=== PATIENT | female | born 1950 | race Caucasian/White ===

== ENCOUNTER → 2016-08-24 | Outpatient (CLI) | payer OTHER, BC | LOC: BHFA 10:45 | PROVIDERS: ATTEND Internal Medicine Cardiovascular Disease | DX: I10 Essential (primary) hypertension (principal) ==

== ENCOUNTER → 2016-09-03 | Outpatient (CLI) | payer OTHER, BC | LOC: BHFA 09:45 | PROVIDERS: ATTEND Internal Medicine Interventional Cardiology | DX: R00.2 Palpitations (principal); R01.1 Cardiac murmur, unspecified; I10 Essential (primary) hypertension ==

== ENCOUNTER → 2016-09-14 | Outpatient (CLI) | payer OTHER, BC | LOC: BHFA 09:00 | PROVIDERS: ATTEND Internal Medicine Cardiovascular Disease | DX: R01.1 Cardiac murmur, unspecified (principal); R00.2 Palpitations; I10 Essential (primary) hypertension ==

== ENCOUNTER → 2017-05-31 | Outpatient (CLI) | payer OTHER, BC | LOC: CIMAGING 07:50 | PROVIDERS: ATTEND Internal Medicine Gastroenterology | DX: K21.9 Gastro-esophageal reflux disease without esophagitis (principal); R13.10 Dysphagia, unspecified; R10.11 Right upper quadrant pain | CPT/HCPCS: 76705-PO ==

== ENCOUNTER 2017-08-09 10:05 | Day surgery (SDC) | payer OTHER, BC ==
[2017-08-09 11:35] VITALS: PULSE 83
--- NOTE | 2017-08-09 11:50 | PDANEPAE ---
ANE History of Present Illness 67 year old female w/ PMHx of HTN, DM2, depression, Gerd, IBS and dysphagia presents for EGD w/ possible dilation. ANE Past Medical History - Cardiovascular History Hx Hypertension: Yes Hx Arrhythmias: No Hx Chest Pain: No Hx Coronary Artery / Peripheral Vascular Disease: No Hx CHF / Valvular Disease: Yes Hx Palpitations: No Cardiovascular History Comment: HEART MURMUR. DYSLIPIDEMIA. HYPOMAGNESEMIA - Pulmonary History Hx COPD: No Hx Asthma/Reactive Airway Disease: No Hx Recent Upper Respiratory Infection: No Hx Oxygen in Use at Home: No Hx Sleep Apnea: No Sleep Apnea Screening Result - Last Documented: Negative - Neurologic History Hx Cerebrovascular Accident: No Hx Seizures: No Hx Dementia: No - Endocrine History Hx Diabetes: Yes Hypothyroid: No Hyperthyroid: No Obesity: no Endocrine History Comment: DM - METFORMIN - Renal History Hx Renal Disorders: No - Liver History Hx Hepatic Disorders: No - Neurological & Psychiatric Hx Hx Neurological and Psychiatric Disorders: Yes Neurological / Psychiatric History Comment: DEPRESSION - Cancer History Hx Cancer: No - Congenital Disorder History Hx Congenital Disorders: No - GI History Hx Gastrointestinal Disorders: Yes Gastrointestinal History Comment: GERD. IBS - Other Health History Other Health History: NEG - Chronic Pain History Chronic Pain: No - Surgical History Prior Surgeries: FUSION LUMBAR. KHURRAM TKA. HYSTERECTOMY. THUMB JOINT R. TONSILLECTOMY ANE Review of Systems Review of systems is: negative Review of Systems: - Exercise capacity Exercise capacity: >=4 METS METS (RN): 4 METS ANE Patient History - Allergies Allergies/Adverse Reactions: codeine [Codeine] Allergy (Verified 05/02/15 13:45) - Home Medications Home medications: home medication list seen and reviewed Home Medications: Aspirin [Aspirin 81mg (*)] 81 mg PO DAILY 12/21/14 [Last Taken 08/08/17] Atorvastatin Calcium [Lipitor 10 mg (*)] 10 mg PO DAILY06 12/21/14 [Last Taken 08/08/17] Cholecalciferol Vit D3 [Vitamin D3 (*)] 1,000 units PO DAILY 12/21/14 [Last Taken 1 Week Ago ~08/02/17] Lisinopril [Zestril 10 mg (*)] 10 mg PO BID 12/21/14 [Last Taken 08/08/17] Metformin HCl [Metformin 1000 mg] 1,000 mg PO BID 12/21/14 [Last Taken 08/08/17] Multivitamins [Multivitamin (*)] 1 each PO DAILY 12/21/14 [Last Taken 1 Week Ago ~08/02/17] [place]-3 Fatty Acids [Fish Oil 1000 mg (*)] 1,000 mg PO BID 12/21/14 [Last Taken 1 Week Ago ~08/02/17] Sertraline HCl [Zoloft 100mg (*)] 100 mg PO DAILY18 12/21/14 [Last Taken ] Ranitidine HCl 07/10/17 [Last Taken 08/08/17] - NPO status NPO Status: no food or drink >8 hours NPO Since - Liquids (Date): 08/08/17 NPO Since - Liquids (Time): 08:00 NPO Since - Solids (Date): 08/08/17 NPO Since - Solids (Time): 20:00 - Anes Hx Anes Hx: no prior problems - Smoking Hx Smoking Status: Never smoked Marijuana use: No - Alcohol Use Alcohol Use: None - Family Anes Hx Family Anes Hx: neg - N/A Family Hx Anesthesia Complications: NEG ANE Labs/Vital Signs - Vital Signs Vital Signs: reviewed preoperatively; see RN documention for details Blood Pressure: 149/93 Heart Rate: 83 Respiratory Rate: 16 O2 Sat (%): 96 Height: 180.34 cm Weight: 95.254 kg ANE Physical Exam - Airway Neck exam: FROM Mallampati Score: Class 2 Mouth exam: normal dental/mouth exam - Pulmonary Pulmonary: no respiratory distress - Cardiovascular Cardiovascular: regular rate and rhythym - ASA Status ASA Status: III ANE Anesthesia Plan Anesthesia Plan: GA with mask Total IV Anesthesia: Yes
--- NOTE | 2017-08-09 11:55 | PDGENHP ---
History & Physical Chief Complaint: GERD dysphagia History of Present Illness: GERD but low mag on lanzoprazole this was stopped. Having some GERD on Prilosec 40 BID Pertinent Past, Social, Family History: neg Relevant Physical Exam: CV rrr s1s2 nl. Chest CTA. Abd + BS soft Cardiorespiratory Assessment: asa11
[2017-08-09] MEDS ORDERED: PROPOFOL/EMULSION 500 MG/50 ML BOTTLE IV ONE (11:58)
[2017-08-09] MEDS ORDERED: fentaNYL 100 MCG/2 ML INJ IVP PRN (12:29)
[2017-08-09] MEDS ORDERED: ONDANSETRON 4 MG/2 ML VIAL IVP PRN (12:29)
[2017-08-09] MEDS ORDERED: NALOXONE HCL 0.4 MG/ML INJ IVP PRN (12:29)
[2017-08-09] MEDS ORDERED: LR 500 ML IV PRN (12:29)
--- NOTE | 2017-08-09 12:34 | GIREPORT ---
[facility] - Endoscopy Department Patient Name: Yessica Yoo Procedure Date: 08/09/2017 12:04 PM Patient Type: Outpatient Attending MD/ ER Physician: Darlin Adamson MD Procedure: Upper GI endoscopy Indications: Dysphagia, Follow-up of esophageal reflux Providers: Darlin Adamson MD Medicines: Monitored Anesthesia Care Complications: No immediate complications. Description of Procedure: After obtaining informed consent, the endoscope was passed under direct vision. Throughout the procedure, the patient's blood pressure, pulse, and oxygen saturations were monitored continuously. The Endoscope was intro duced through the mouth, and advanced to the second part of duodenum. [facility] endoscopy was accomplished without difficulty. The patient tolerated th e procedure well. Findings: LA Grade B (one or more mucosal breaks greater than 5 mm, not extending between the tops of two mucosal folds) esophagitis with no bleeding was found at the gastroesophageal junction. Biopsies were taken with a cold forceps for histology. Estimated blood loss was minimal. The middle third of the esophagus was normal. Biopsies were taken with a cold forceps for histology. Estimated blood loss was minimal. One mild benign-appearing, intrinsic stenosis was found. And was luis sed. A medium-sized hiatal hernia was present. The stomach was normal. The examined duodenum was normal. Estimated Blood Loss: Estimated blood loss was minimal. Post Op Diagnosis: - LA Grade B reflux esophagitis. Biopsied. Dilation not done due to inflammation. - Normal middle third of esophagus. Biopsied. - Benign-appearing esophageal stenosis. - Medium-sized hiatal hernia. - Normal stomach. - Normal examined duodenum. Recommendation: - Await pathology results. - Patient has a contact number available for emergencies. The signs and symptoms of potential delayed complications were discussed with the pat ient. Return to normal activities tomorrow. Written discharge instructions we re provided to the patient. - Resume previous diet. - Continue present medications. - Use Protonix (pantoprazole) 20 mg PO daily daily. - Take ranitidine 150 mg 2 tabs before bed. - Check magnesium in 2 weeks. - Return to my office in 3 months. If cannot tolerate PPI due to drop i n magnesium then restart ranitidine 300 BID and consider surgical options or consider Baclofen. - Discharge patient to home. - Thank you for allowing me to participate in the care of your patient. Attending Participation: I personally performed the entire procedure. Darlin Adamson MD Darlin Adamson MD 08/09/2017 12:34:12 PM This report has been signed electronicallyDarlin Adamson MD Number of Addenda: 0 Note Initiated On: 08/09/2017 12:04 PM [email or web address]
[2017-08-09 13:18] VITALS: O2SAT 96
--- NOTE | 2017-08-09 13:34 | POSTANESTH ---
Post Anesthetic Evaluation Cardiovascular Status: Normal, Stable, Similar to Pre-Op Cond Respiratory Status: Normal, Stable, Similar to Pre-op Cond. Level of Consciousness/Mental Status: Can Participate in Eval, Alert and Oriented Pain Control: Adequate, Prn Tx Ordered Nausea/Vomiting Control: Adequate, Prn Tx Ordered Complications Possibly Related to Anesthesia: None Noted
[2017-08-09 14:08] VITALS: BP 136/78; RESP 18; TEMP 98.1
== END 2017-08-09 13:50 | disposition home or self-care (01) ==
LOC: FSGY 10:05
PROVIDERS: ATTEND Internal Medicine Gastroenterology
DX: K20.9 Esophagitis, unspecified (principal); K21.9 Gastro-esophageal reflux disease without esophagitis; R13.10 Dysphagia, unspecified
CPT/HCPCS: J2704

== ENCOUNTER → 2017-09-10 | Outpatient (CLI) | payer OTHER, BC | LOC: FIMAGING 11:39 | PROVIDERS: ATTEND Family Medicine | DX: Z12.31 Encounter for screening mammogram for malignant neoplasm of breast (principal) ==

== ENCOUNTER 2017-09-25 04:59 | Emergency (ER) | payer OTHER, BC ==
--- NOTE | 2017-09-25 05:12 | EDPHY ---
H & P HPI/ROS: HPI CHIEF COMPLAINT: Sore throat since saturday, chills, TMAX 99.9 HISTORY OF PRESENT ILLNESS: This is a very pleasant 67 y.o. Significant past medical history for hypertension, hyperlipidemia, GERD and non-insulin- dependent diabetes she presents emergency room with sore throat since Saturday. She has had some chills. She states T-max 99.9 degrees. She presents emergency room at 5:15 a.m. In the morning for sore throat. She has had a cough but nonproductive. She denies any chest pain or shortness of breath. Denies vomiting. Denies urinary symptoms. She states she has been sick with what seems to be upper respiratory tract infection since Saturday. She decided come the emergency room as she was concerned how bad her throat was hurting her and having a low-grade fever. Past Medical History: Hypertension, hyperlipidemia, GERD, non-insulin- dependent diabetes, history IBS Past Surgical History: Hip replacement Social History: Denies drugs alcohol tobacco products. Family History: Noncontributory ROS REVIEW OF SYSTEMS: A comprehensive 10 point review of systems is otherwise negative aside from elements mentioned in the history of present illness. Exam Constitutional appears well nontoxic no acute distress triage nursing summary reviewed, vital signs reviewed, awake/alert. Vital signs noted at triage hypertensive but not tachycardic or febrile Eyes normal conjunctivae and sclera, EOMI, PERRLA. HENT TMs are clear bilaterally, posterior pharynx mild erythema no exudate, normal inspection, atraumatic, moist mucus membranes, no epistaxis, neck supple / no meningismus, no raccoon eyes. Respiratory clear to auscultation bilaterally, normal breath sounds, no respiratory distress, no wheezing. Cardiovascular rate normal, regular rhythm, no murmur, no edema, distal pulses normal. Gastrointestinal soft, non-tender, no rebound, no guarding, normal bowel sounds, no distension, no pulsatile mass. Genitourinary no CVA tenderness. Musculoskeletal no midline vertebral tenderness, full range of motion, no calf swelling, no tenderness of extremities, no meningismus, good pulses, neurovascularly intact. Skin pink, warm, & dry, no rash, skin atraumatic. Neurologic awake, alert and oriented x 3, AAOx3, moves all 4 extremities equally, motor intact, sensory intact, CN II-XII intact, normal cerebellar, normal vision, normal speech. Psychiatric normal mood/affect. Heme/Lymph/Immune no lymphadenopathy. Differential Diagnosis: Includes but is not limited to in a particular order upper respiratory tract infection, strep pharyngitis, viral syndrome, influenza , viral pharyngitis, other viral process Medical Decision Making: Plan for this patient check rapid strep and influenza. Re-evaluation: 0527AM: The rapid strep and influenza test are negative. However I will start her on antibiotics azithromycin I do recommend she takes Tylenol for fever and pain control. Stay well-hydrated drink lots of fluids. Additionally recommend she follows up with primary care doctor. If she has worsening symptoms includes high fever, vomiting not feeling well she should return emergency room she understands this. Prescription prescribed for Mucinex and azithromycin. Source: Patient, Family - Personal History Tetanus Vaccine Date: 2009 - Medical/Surgical History Hx Asthma: No Hx Chronic Respiratory Disease: No Hx Diabetes: Yes Hx Cardiac Disease: No Hx Renal Disease: No Hx Cirrhosis: No Hx Alcoholism: No Hx HIV/AIDS: No Hx Splenectomy or Spleen Trauma: No Other PMH: BACK SURGERY, RODS. L.KNEE REPLACEMENT. CARPAL TUNNEL. THUMB JOINT SURGERY. ? colitis. HTN, hyperlipidemia - Social History Smoking Status: Never smoked Constitutional: Initial Vital Signs Temperature (C) 36.8 C 09/25/17 05:13 Heart Rate 92 09/25/17 05:13 Respiratory Rate 18 09/25/17 05:13 Blood Pressure 179/97 H 09/25/17 05:13 O2 Sat (%) 95 09/25/17 05:13 O2 Delivery Mode Room Air Allergies/Adverse Reactions: codeine [Codeine] Allergy (Verified 05/02/15 13:45) Home Medications: Medication Instructions Recorded Aspirin [Aspirin 81mg (*)] 81 mg PO DAILY 12/21/14 Atorvastatin Calcium [Lipitor 10 10 mg PO DAILY06 12/21/14 mg (*)] Cholecalciferol Vit D3 [Vitamin D3 1,000 units PO DAILY 12/21/14 (*)] Lisinopril [Zestril 10 mg (*)] 10 mg PO BID 12/21/14 Metformin HCl [Metformin 1000 mg] 1,000 mg PO BID 12/21/14 Multivitamins [Multivitamin (*)] 1 each PO DAILY 12/21/14 [place]-3 Fatty Acids [Fish Oil 1000 1,000 mg PO BID 12/21/14 mg (*)] Ranitidine HCl 07/10/17 AZITHROMYCIN [Z-PACK] 250 mg PO DAILY #6 tab 09/25/17 guaiFENesin [Guaifenesin ER] 600 mg PO BID #14 tab.er.12h 09/25/17 Medical Decision Making - Data Points Laboratory Results: 09/25/17 09/25/17 09/25/17 Unknown 05:05 05:05 Influenza A,B Rapid NEGATIVE FOR FLU (NEGATIVE) Group A Strep Screen NEGATIVE (NEGATIVE) Group A Strep DNA Pending Departure - Departure Disposition: Home, Routine, Self-Care Clinical Impression: Upper respiratory infection Condition: Good Instructions: Upper Respiratory Infection (ED), Pharyngitis (ED) Additional Instructions: 1. Make sure to drink lots of fluids stay well-hydrated. 2. Take Tylenol for fever and pain control. 3. Antibiotic as prescribed. 4. Follow up with her primary care doctor Referrals: Patient,NotPresent [Primary Care Provider] - As per Instructions Prescriptions: AZITHROMYCIN [Z-PACK] 250 mg PO DAILY #6 tab guaiFENesin [Guaifenesin ER] 600 mg PO BID #14 tab.er.12h
[2017-09-25 05:16] VITALS: BP 179/97; PULSE 92; RESP 18; TEMP 98.2; O2SAT 95
== END 2017-09-25 05:37 | disposition home or self-care (01) ==
LOC: CED 04:59
PROC: 2W39X1Z Immobilization of Left Upper Extremity using Splint (ICD-10-PCS; principal; 2017-09-25)
DX: J06.9 Acute upper respiratory infection, unspecified (principal); I10 Essential (primary) hypertension; E11.9 Type 2 diabetes mellitus without complications; Z79.82 Long term (current) use of aspirin; Z79.84 Long term (current) use of oral hypoglycemic drugs
CPT/HCPCS: 87400-PO; 87880-PO

== ENCOUNTER → 2017-10-21 | Outpatient (CLI) | payer OTHER, BC ==
[~2017-10-21] MED LIST: IOPAMIDOL (ISOVUE-300) 100 ML BTL ONE
== END ==
LOC: FIMAGING 08:28
PROVIDERS: ATTEND Family Medicine
DX: N13.1 Hydronephrosis with ureteral stricture, not elsewhere classified (principal); N20.1 Calculus of ureter; M51.36 Other intervertebral disc degeneration, lumbar region; M46.96 Unspecified inflammatory spondylopathy, lumbar region
CPT/HCPCS: 74177; Q9967

== ENCOUNTER → 2018-01-28 | Outpatient (CLI) | payer OTHER, BC | LOC: FIMAGING 08:00 | PROVIDERS: ATTEND Surgery | DX: K21.9 Gastro-esophageal reflux disease without esophagitis (principal); K44.9 Diaphragmatic hernia without obstruction or gangrene ==

== ENCOUNTER 2018-02-13 07:08 | Inpatient (IN) | payer OTHER, BC ==
[~2018-02-13 07:08] MED LIST changes: -IOPAMIDOL (ISOVUE-300) 100 ML BTL ONE; +cefOXitin SODIUM 2 GM in NS 100 ML IV ONE
[2018-02-13] MEDS ORDERED: HEPARIN 1000 UNIT/1 ML MDV ONE (07:34)
[2018-02-13] MEDS ORDERED: BUPIVACAINE/EPI 0.5% 30 ML SDV ONE (07:34)
[2018-02-13] MEDS ORDERED: ceFAZolin 1 GM/5 ML SYR ONE (07:35)
[2018-02-13] MEDS ORDERED: LR 1,000 ML IV ONE (07:57)
[2018-02-13] MEDS ORDERED: LIDOCAINE 1% 2 ML INJ ID PRN (07:57)
--- NOTE | 2018-02-13 08:05 | PDANEPAE ---
ANE History of Present Illness 67 year old female for Zay Fundiplication. ANE Past Medical History - Cardiovascular History Hx Hypertension: Yes Hx Arrhythmias: No Hx Chest Pain: No Hx Coronary Artery / Peripheral Vascular Disease: No Hx CHF / Valvular Disease: Yes Hx Palpitations: No Cardiovascular History Comment: HEART MURMUR. DYSLIPIDEMIA. HYPOMAGNESEMIA - Pulmonary History Hx COPD: No Hx Asthma/Reactive Airway Disease: No Hx Recent Upper Respiratory Infection: No Hx Oxygen in Use at Home: No Hx Sleep Apnea: No - Neurologic History Hx Cerebrovascular Accident: No Hx Seizures: No Hx Dementia: No - Endocrine History Hx Diabetes: Yes Endocrine History Comment: DM - METFORMIN - Renal History Hx Renal Disorders: No - Liver History Hx Hepatic Disorders: No - Neurological & Psychiatric Hx Hx Neurological and Psychiatric Disorders: Yes Neurological / Psychiatric History Comment: DEPRESSION - Cancer History Hx Cancer: No - Congenital Disorder History Hx Congenital Disorders: No - GI History Hx Gastrointestinal Disorders: Yes Gastrointestinal History Comment: GERD. IBS - Other Health History Other Health History: NEG - Chronic Pain History Chronic Pain: No - Surgical History Prior Surgeries: FUSION LUMBAR. KHURRAM TKA. HYSTERECTOMY. THUMB JOINT R. TONSILLECTOMY ANE Review of Systems Review of systems is: negative Review of Systems: - Exercise capacity Exercise capacity: >=4 METS METS (RN): 5 METS ANE Patient History - Allergies Allergies/Adverse Reactions: codeine [Codeine] Allergy (Verified 02/13/18 07:41) - Home Medications Home medications: home medication list seen and reviewed Home Medications: RX: Aspirin [Aspirin 81mg (*)] 81 mg PO DAILY 12/21/14 [Last Taken 08/08/17] RX: Atorvastatin Calcium [Lipitor 10 mg (*)] 10 mg PO DAILY06 12/21/14 [Last Taken 08/08/17] RX: Cholecalciferol Vit D3 [Vitamin D3 (*)] 1,000 units PO DAILY 12/21/14 [Last Taken 1 Week Ago ~08/02/17] RX: Lisinopril [Zestril 10 mg (*)] 10 mg PO BID 12/21/14 [Last Taken 08/08/17] RX: Metformin HCl [Metformin 1000 mg] 1,000 mg PO BID 12/21/14 [Last Taken 08/08] RX: Multivitamins [Multivitamin (*)] 1 each PO DAILY 12/21/14 [Last Taken 1 Week Ago ~08/02/17] RX: [place]-3 Fatty Acids [Fish Oil 1000 mg (*)] 1,000 mg PO BID 12/21/14 [Last Taken 1 Week Ago ~08/02/17] Ranitidine HCl 07/10/17 [Last Taken 08/08/17] - NPO status NPO Status: no food or drink >8 hours - Anes Hx Anes Hx: no prior problems - Smoking Hx Smoking Status: Never smoked Marijuana use: No - Alcohol Use Alcohol Use: Rarely - Family Anes Hx Family Anes Hx: neg - N/A Family Hx Anesthesia Complications: NEG ANE Labs/Vital Signs - Vital Signs Vital Signs: reviewed preoperatively; see RN documention for details (vitals reviewed on hand written chart ) Height: 175.26 cm Weight: 85.275 kg ANE Physical Exam - Airway Neck exam: FROM Mallampati Score: Class 2 Mouth exam: normal dental/mouth exam - Pulmonary Pulmonary: no respiratory distress - Cardiovascular Cardiovascular: regular rate and rhythym - ASA Status ASA Status: II ANE Anesthesia Plan Anesthesia Plan: general endotracheal anesthesia Total IV Anesthesia: No
--- NOTE | 2018-02-13 08:34 | PDHPUP ---
History & Physical Update H&P update statement: This history and physical update is based on an assessment of the patient which was completed after admission or registration (within 24 hours), but prior to the surgery/procedure. H&P update: H&P reviewed & patient examined, no change in patient's condition since H&P completed
[2018-02-13] MEDS ORDERED: MIDAZOLAM 2 MG/2 ML VIAL IVP ONE (08:54)
[2018-02-13] MEDS ORDERED: fentaNYL 100 MCG/2 ML INJ ONE ×2 (09:04→11:36)
[2018-02-13] MEDS ORDERED: PROPOFOL 200 MG/20 ML VIAL ONE (09:05)
[2018-02-13] MEDS ORDERED: PHENYLEPHRINE HCL 100 MCG/ML SYR ONE (09:38)
[2018-02-13] MEDS ORDERED: HYDROmorphONE/DILAUDID 2 MG/ML INJ ONE (10:21)
[2018-02-13] MEDS ORDERED: ONDANSETRON 4 MG/2 ML VIAL ONE (10:44)
[2018-02-13] MEDS ORDERED: SUGAMMADEX SODIUM 200 MG/2 ML VIAL IVP ONE (10:44)
[2018-02-13] MEDS ORDERED: DEXAMETHASONE 4 MG/ML VIAL ONE (10:44)
[2018-02-13] MEDS ORDERED: PROMETHAZINE HCL 25 MG/ML INJ IVP PRN (11:25)
[2018-02-13] MEDS ORDERED: PHENYLEPHRINE HCL 100 MCG/ML SYR IVP PRN (11:25)
[2018-02-13] MEDS ORDERED: LR 500 ML IV PRN (11:25)
[2018-02-13] MEDS ORDERED: ONDANSETRON 4 MG/2 ML VIAL IVP PRN (11:25)
[2018-02-13] MEDS ORDERED: NALOXONE HCL 0.4 MG/ML INJ IVP PRN (11:25)
[2018-02-13] MEDS ORDERED: LABETALOL HCL 5 MG/ML 20 ML MDV IVP PRN (11:25)
[2018-02-13] MEDS: fentaNYL 100 MCG/2 ML INJ IVP PRN ×2 (11:36→11:47)
[2018-02-13] MEDS ORDERED: OXYCODONE/APAP 5/325 TAB PO PRN (11:37)
[2018-02-13] MEDS ORDERED: ONDANSETRON DISINTEGRATING 4 MG TAB PO PRN (11:38)
[2018-02-13] MEDS ORDERED: ACETAMINOPHEN 325 MG TAB PO PRN (11:44)
[2018-02-13] MEDS ORDERED: IBUPROFEN 200 MG TAB PO PRN (11:45)
[2018-02-13] MEDS ORDERED: HYDROmorphONE/DILAUDID 1 MG/ML INJ ONE (11:58)
[2018-02-13] MEDS: HYDROmorphONE/DILAUDID 1 MG/ML INJ IVP PRN ×7 (12:00→21:59)
[2018-02-13] MEDS: NS W/ 20 KCl/L 1,000 ML IV SCH ×2 (13:06→23:16)
[2018-02-13] MEDS: ONDANSETRON 4 MG/2 ML VIAL IVP PRN ×2 (14:57→17:43)
[2018-02-13] MEDS: CHOLECALCIFEROL VIT D3 1,000 UNITS TAB PO SCH (19:57)
[2018-02-13] MEDS: ATORVASTATIN CALCIUM 10 MG TAB PO SCH (19:58)
[2018-02-13] MEDS: FAMOTIDINE 20 MG TAB PO SCH (19:58)
[2018-02-13] MEDS: metFORMIN HCL 500 MG TAB PO SCH (19:58)
[2018-02-13] MEDS: LISINOPRIL 10 MG TAB PO SCH (19:58)
--- NOTE | 2018-02-14 02:28 | GOP ---
[f rep st] OPERATIVE REPORT DATE OF OPERATION: 02/13/2018 SURGEON: Naun Vizcarra MD MARITIME GUARD: Barb Servin, nurse practitioner. ANESTHESIOLOGIST: Dr. Polanco. PREOPERATIVE DIAGNOSIS: Severe gastroesophageal reflux. POSTOPERATIVE DIAGNOSIS: Severe gastroesophageal reflux. PROCEDURE PERFORMED: Laparoscopic Zay fundoplication. FINDINGS: The patient was found to have essentially no hiatal hernia. She had good anatomy for Niss en fundoplication wrap. DESCRIPTION OF PROCEDURE: The patient was taken to the operating room where she received satisfactor y general endotracheal anesthesia by Dr. Polanco. She was placed in the supine position with a straig ht leg split. Epigastric short incision was made. A Veress needle was inserted. Pneumoperitoneum w as established. A trocar was introduced. Laparoscope introduced. Good visualization was obtained. Four other trocars placed in the upper abdomen under direct vision. The liver was retracted with a liver fan and the left lateral segment of the liver was quite fat and enlarged, making exposure somew hat difficult. The hiatus was dissected free both left and right dulce were identified. Esophagus wa s freed up circumferentially off the diaphragmatic dulce and up into the lower chest, went easily down in the abdomen. The gastric fundus was mobilized by dividing the short gastrics and the fundoplicat ion wrap was made around a 52 bougie dilator placed in the esophagus by anesthesia. The wrap was cre ated using 0 Ethibond sutures securing the anterior wall of the stomach to the esophagus and then to the fundoplication wrap. An additional suture was made more cephalad again in a similar manner, secu ring both portions of the wrap to the anterior wall of the esophagus. Bougie was removed. The wrap appeared to be loose and sloppy and the hiatus repair appeared to be snug. The hiatal dulce had been approximated with interrupted 0 Ethibond sutures as well. Blood loss was negligible. There were no complications. Trocars removed under direct vision. Trocar sites were closed with 4-0 Monocryl subc uticular sutures. All layers were infiltrated with Marcaine. Blood loss was negligible. No complications. Taken to the recovery room in good condition. /[id number]/MODL
[2018-02-14] MEDS: CHOLECALCIFEROL VIT D3 1,000 UNITS TAB PO SCH ×2 (02:58→20:49)
[2018-02-14] MEDS: metFORMIN HCL 500 MG TAB PO SCH ×3 (02:59→20:49)
[2018-02-14] MEDS: ONDANSETRON 4 MG/2 ML VIAL IVP PRN (03:19)
[2018-02-14] MEDS: HYDROmorphONE/DILAUDID 1 MG/ML INJ IVP PRN (08:04)
[2018-02-14] MEDS: LISINOPRIL 10 MG TAB PO SCH ×2 (08:06→20:49)
[2018-02-14] MEDS: FAMOTIDINE 20 MG TAB PO SCH ×2 (08:07→20:49)
[2018-02-14] MEDS: ASPIRIN 81 MG CHEWABLE TAB PO SCH (08:07)
--- NOTE | 2018-02-14 09:33 | ASMTCMCOM ---
CM Note CM Note Notes: Pt admitted for scheduled hernia surgery. CM spoke w/RN, anticipate pt will dc home w/support of when medically stable. CM available for any changes. DC Plan: Independent Date Signed: 02/14/2018 09:31 AM Electronically Signed By:Monisha Hwang RN
--- NOTE | 2018-02-14 09:59 | SOAPPROG ---
SOAP Progress Note Assessment/Plan: Assessment: 67 y/o F s/p lap brittney fundoplication POD#1 S: Doing well over all. Does have some pain and "tightening" in abdomen with getting out of bed and ambulating. Passing lots of gas, but no BM yet. Tolerating clear liquids well. Having some difficulty with swallowing pills. Able to swallow crushed meds in apple sauce. No nausea. Heartburn symptoms improved. O: Alert Afebrile RRR No increased WOB Abdomen: soft, appropriately ttp, incisions cdi, +BS Plan: Advance diet as tolerated. D/c iv fluids and iv dilaudid. Would like to stay one more night. Dispo home tomorrow. 02/14/18 09:55 Objective: Vital Signs Temp Pulse Resp BP Pulse Ox 37.2 C 84 12 148/76 H 94 02/14/18 07:20 02/14/18 07:20 02/14/18 07:20 02/14/18 08:06 02/14/18 07:20 02/13/18 02/14/18 02/15/18 05:59 05:59 05:59 Intake Total 1650 Output Total 210 Balance 1440 ICD10 Worksheet Patient Problems: Problems Problem Status Onset Diarrhea Acute Microscopic colitis Acute
[2018-02-14] MEDS: HYDROmorphONE/DILAUDID 2 MG TAB PO PRN ×3 (12:59→20:58)
--- NOTE | 2018-02-14 15:25 | PDMN ---
Medical Necessity Medical necessity: Change to IP per [employer] DIRECT[employer]; los >2 mn s/p Zay Fundoplication POD #1; admit for pain control & monitored advancement of diet; per progress note & order 02/14/18
--- NOTE | 2018-02-14 20:03 | SOAPPROG ---
SOAP Progress Note Assessment/Plan: Assessment: STATUS POST LAP DICK AFEBRILE/VITAL SIGNS STABLE/WOUND OKAY/EATING WELL Plan: HOME IN THE A.M. 02/14/18 20:03 Objective: Vital Signs Temp Pulse Resp BP Pulse Ox 37.0 C 85 16 164/84 H 95 02/14/18 19:30 02/14/18 19:30 02/14/18 19:30 02/14/18 19:30 02/14/18 19:30 02/13/18 02/14/18 02/15/18 05:59 05:59 05:59 Intake Total 1650 900 Output Total 210 Balance 1440 900 ICD10 Worksheet Patient Problems: Problems Problem Status Onset Diarrhea Acute Microscopic colitis Acute
[2018-02-14] MEDS: ATORVASTATIN CALCIUM 10 MG TAB PO SCH (20:49)
[2018-02-15 07:58] VITALS: BP 149/80
[2018-02-15] MEDS: HYDROmorphONE/DILAUDID 2 MG TAB PO PRN (09:02)
[2018-02-15] MEDS: LISINOPRIL 10 MG TAB PO SCH (09:04)
[2018-02-15] MEDS: metFORMIN HCL 500 MG TAB PO SCH (09:04)
[2018-02-15] MEDS: FAMOTIDINE 20 MG TAB PO SCH (09:04)
[2018-02-15] MEDS: ASPIRIN 81 MG CHEWABLE TAB PO SCH (09:04)
--- NOTE | 2018-02-15 09:24 | SOAPPROG ---
SOAP Progress Note Assessment/Plan: Assessment: POD # 2 s/p Zay Doing well still some burping Tolerating soft S: Feeling well O: CTAB RR Appears well incisions cdi Plan: 02/15/18 09:23 Objective: Vital Signs Temp Pulse Resp BP Pulse Ox 36.9 C 91 12 149/80 H 93 02/15/18 07:57 02/15/18 07:57 02/15/18 07:57 02/15/18 07:57 02/15/18 07:57 02/14/18 02/15/18 02/16/18 05:59 05:59 05:59 Intake Total 1650 900 Output Total 210 Balance 1440 900 ICD10 Worksheet Patient Problems: Problems Problem Status Onset Diarrhea Acute Microscopic colitis Acute
== END 2018-02-15 11:35 | disposition home or self-care (01) | DRG 941 ==
LOC: F3E 07:08 → OBSVTOIN 02-14 14:30
PROVIDERS: ADMIT Surgery; ATTEND Surgery
PROC: 0DV44ZZ Restriction of Esophagogastric Junction, Percutaneous Endoscopic Approach (ICD-10-PCS; principal; 2018-02-13 08:30)
DX: G89.18 Other acute postprocedural pain (principal); K21.9 Gastro-esophageal reflux disease without esophagitis; K22.2 Esophageal obstruction; I10 Essential (primary) hypertension; E78.5 Hyperlipidemia, unspecified; E83.42 Hypomagnesemia; E11.9 Type 2 diabetes mellitus without complications; Z79.84 Long term (current) use of oral hypoglycemic drugs
CPT/HCPCS: J0694; J1100; J1170; J2250; J2370; J2405; J2704; J3010

== ENCOUNTER → 2018-09-24 | Outpatient (CLI) | payer OTHER | LOC: FIMAGING 10:59 | PROVIDERS: ATTEND Family Medicine | DX: Z12.31 Encounter for screening mammogram for malignant neoplasm of breast (principal) ==

== ENCOUNTER 2018-10-24 10:24 | Day surgery (SDC) | payer OTHER ==
[2018-10-24] MEDS ORDERED: LR 1,000 ML IV ONE (10:38)
--- NOTE | 2018-10-24 11:47 | PDANEPAE ---
ANE Past Medical History - Cardiovascular History Hx Hypertension: Yes Hx Arrhythmias: No Hx Chest Pain: No Hx Coronary Artery / Peripheral Vascular Disease: No Hx CHF / Valvular Disease: Yes Hx Palpitations: No Cardiovascular History Comment: HEART MURMUR. DYSLIPIDEMIA. HYPOMAGNESEMIA - Pulmonary History Hx COPD: No Hx Asthma/Reactive Airway Disease: No Hx Recent Upper Respiratory Infection: No Hx Oxygen in Use at Home: No Hx Sleep Apnea: No Sleep Apnea Screening Result - Last Documented: Negative - Neurologic History Hx Cerebrovascular Accident: No Hx Seizures: No Hx Dementia: No - Endocrine History Hx Diabetes: Yes Endocrine History Comment: DM - METFORMIN - Renal History Hx Renal Disorders: No - Liver History Hx Hepatic Disorders: No - Neurological & Psychiatric Hx Hx Neurological and Psychiatric Disorders: Yes Neurological / Psychiatric History Comment: DEPRESSION - Cancer History Hx Cancer: No - Congenital Disorder History Hx Congenital Disorders: No - GI History Hx Gastrointestinal Disorders: Yes Gastrointestinal History Comment: GERD. IBS - Other Health History Other Health History: NEG - Chronic Pain History Chronic Pain: No - Surgical History Prior Surgeries: FUSION LUMBAR. KHURRAM TKA. HYSTERECTOMY. THUMB JOINT R. TONSILLECTOMY ANE Review of Systems Review of Systems: - Exercise capacity METS (RN): 5 METS ANE Patient History - Allergies Allergies/Adverse Reactions: codeine [Codeine] Allergy (Verified 10/24/18 10:45) RASH,HIVES SOB - Home Medications Home Medications: Aspirin [Aspirin 81mg (*)] 81 mg PO DAILY 12/21/14 [Last Taken 10/14/18] Atorvastatin Calcium [Lipitor 10 mg (*)] 10 mg PO HS 12/21/14 [Last Taken ] Cholecalciferol Vit D3 [Vitamin D3 (*)] 1,000 units PO HS 12/21/14 [Last Taken 10/14/18] Lisinopril [Zestril 10 mg (*)] 10 mg PO BID 12/21/14 [Last Taken 10/23/18] Metformin HCl [Metformin 1000 mg] 1,000 mg PO BID 12/21/14 [Last Taken 10/23/18] Multivitamins [Multivitamin (*)] 1 each PO DAILY 12/21/14 [Last Taken 10/14/18] [place]-3 Fatty Acids [Fish Oil 1000 mg (*)] 1,000 mg PO BID 12/21/14 [Last Taken 10/14/18] Lidocaine 10/08/18 [Last Taken 10/17/18] - NPO status NPO Since - Liquids (Date): 10/23/18 NPO Since - Liquids (Time): 22:00 NPO Since - Solids (Date): 10/23/18 NPO Since - Solids (Time): 20:00 - Smoking Hx Smoking Status: Never smoked - Family Anes Hx Family Hx Anesthesia Complications: NEG ANE Labs/Vital Signs - Vital Signs Blood Pressure: 116/71 Heart Rate: 71 Respiratory Rate: 16 O2 Sat (%): 96 Height: 176.53 cm Weight: 80.286 kg ANE Physical Exam - Airway Mallampati Score: Class 2 - ASA Status ASA Status: III ANE Anesthesia Plan Total IV Anesthesia: Yes
[2018-10-24] MEDS ORDERED: PROPOFOL/EMULSION 500 MG/50 ML BOTTLE IV ONE (11:51)
[2018-10-24] MEDS ORDERED: fentaNYL 100 MCG/2 ML INJ ONE (11:52)
[2018-10-24] MEDS ORDERED: ONDANSETRON 4 MG/2 ML VIAL ONE (11:52)
--- NOTE | 2018-10-24 11:55 | PDGENHP ---
History & Physical Chief Complaint: dysphagia History of Present Illness: Esophagitis s/p Max Pertinent Past, Social, Family History: Intolerant to PPI Relevant Physical Exam: cv [id number] nl. chest CTA. Abd + bs soft. ASAiii Cardiorespiratory Assessment: ASAIII
--- NOTE | 2018-10-24 12:19 | GIREPORT ---
[facility] Surgical Services - Endoscopy Department Patient Name: Yessica Yoo Procedure Date: 10/24/2018 11:57 AM Patient Type: Outpatient Attending MD/ ER Physician: Darlin Adamson MD Procedure: Upper GI endoscopy Indications: Dysphagia Providers: Darlin Adamson MD Medicines: Monitored Anesthesia Care Complications: No immediate complications. Description of Procedure: After obtaining informed consent, the endoscope was passed under direct vision. Throughout the procedure, the patient's blood pressure, pulse, and oxygen saturations were monitored continuously. The Endoscope was intro duced through the mouth, and advanced to the second part of duodenum. The [facility] er GI endoscopy was accomplished without difficulty. The patient tolerated th e procedure well. Findings: Mild erythema esophagitis with no bleeding was found at the gastroesoph ageal junction. One benign-appearing, intrinsic stenosis was found. This stenosis was m ildly severe and. The stenosis was traversed. A TTS dilator was passed throug h the scope. Dilation with a 12-13.5-15 mm balloon dilator was performed to 1 3.5 mm and 15 mm. Estimated blood loss was minimal. The mid esophagus was normal. Biopsies were taken with a cold forceps f or histology. Estimated blood loss was minimal. Moderately erythematous mucosa without bleeding was found in the gastri c antrum. Biopsies were taken with a cold forceps for histology. Estimate d blood loss was minimal. The examined duodenum was normal. Estimated Blood Loss: Estimated blood loss was minimal. Post Op Diagnosis: - Minor reflux esophagitis. - Benign-appearing esophageal stenosis. Dilated. - Normal mid esophagus. Biopsied. - Erythematous mucosa in the antrum. Biopsied. - Normal examined duodenum. Recommendation: - Await pathology results. - Patient has a contact number available for emergencies. The signs and symptoms of potential delayed complications were discussed with the pat ient. Return to normal activities tomorrow. Written discharge instructions we re provided to the patient. - Resume previous diet. - Continue present medications. - Repeat upper endoscopy PRN for retreatment. - Use Zantac (ranitidine) 150 mg PO BID. - Return to GI office in 3 months. - Discharge patient to home. - Thank you for allowing me to participate in the care of your patient. Attending Participation: I personally performed the entire procedure. Darlin Adamson MD Darlin Adamson MD 10/24/2018 12:19:03 PM This report has been signed electronicallyDarlin Adamson MD Number of Addenda: 0 Note Initiated On: 10/24/2018 11:57 AM [email or web address]
[2018-10-24] MEDS ORDERED: NALOXONE HCL 0.4 MG/ML INJ IVP PRN (12:22)
[2018-10-24] MEDS ORDERED: LR 500 ML IV PRN (12:22)
[2018-10-24] MEDS ORDERED: fentaNYL 100 MCG/2 ML INJ IVP PRN (12:22)
[2018-10-24] MEDS ORDERED: METOCLOPRAMIDE 10 MG/2 ML VIAL IVP PRN (12:22)
--- NOTE | 2018-10-24 12:24 | POSTANESTH ---
Post Anesthetic Evaluation Cardiovascular Status: Normal, Stable, Similar to Pre-Op Cond Respiratory Status: Normal, Stable Level of Consciousness/Mental Status: Can Participate in Eval Pain Control: Adequate, Prn Tx Ordered Nausea/Vomiting Control: Adequate, Prn Tx Ordered Complications Possibly Related to Anesthesia: None Noted
[2018-10-24 14:34] VITALS: BP 104/65
== END 2018-10-24 14:25 | disposition home or self-care (01) ==
LOC: FSGY 10:24
PROVIDERS: ATTEND Internal Medicine Gastroenterology
DX: K21.0 Gastro-esophageal reflux disease with esophagitis (principal); K22.2 Esophageal obstruction; Z87.19 Personal history of other diseases of the digestive system; Z09 Encounter for follow-up examination after completed treatment for conditions other than malignant neoplasm; I10 Essential (primary) hypertension; R01.1 Cardiac murmur, unspecified; E11.9 Type 2 diabetes mellitus without complications; E78.5 Hyperlipidemia, unspecified; Z82.49 Family history of ischemic heart disease and other diseases of the circulatory system
CPT/HCPCS: 43239; 43249; C1726; J2405; J2704; J3010